=== PATIENT | female | born 1965 | race Caucasian/White ===

== ENCOUNTER → 2016-09-01 | Outpatient (CLI) | payer BC ==
--- NOTE | 2016-09-01 17:00 | MAMMOGRAPHY REPORT ---
BILATERAL DIGITAL SCREENING MAMMOGRAM TOMOSYNTHESIS WITH CAD: 09/01/2016 CLINICAL HISTORY: Routine screening examination. TECHNIQUE: Breast tomosynthesis in addition to standard 2D mammography was performed. Current study was also evaluated with a Computer Aided Detection (CAD) system. COMPARISON: Comparison is made to exams dated: 12/06/2013 mammogram - [facility], 01/18/2008, and 07/21/2006 mammogram - [facility]. BREAST COMPOSITION: There are scattered areas of fibroglandular density in both breasts. FINDINGS: No suspicious mass, architectural distortion or cluster of microcalcifications is seen. IMPRESSION: ACR BI-RADS CATEGORY 1: NEGATIVE There is no mammographic evidence of malignancy. A 1 year screening mammogram is recommended. The p atient will receive written notification of the results. Approximately 10% of breast cancers are not detected with mammography. A negative mammographic repor t should not delay biopsy if a clinically suggestive mass is present. Poornima castellon/nayan:09/01/2016 15:57:58 Engineering Document Control Clerk: Anuja CERVANTES(Malena)(Eli), [facility] letter sent: Normal 1/2 BI-RADS Code: ACR BI-RADS Category 1: Negative
== END | disposition home or self-care (01) ==
LOC: C.MAMM 15:05
PROVIDERS: ATTEND Obstetrics & Gynecology
DX: Z12.31 Encounter for screening mammogram for malignant neoplasm of breast (principal)

== ENCOUNTER → 2017-07-26 | Outpatient (CLI) | payer BC | END | disposition home or self-care (01) | LOC: C.LAB1850 09:04 | PROVIDERS: ATTEND Nurse Practitioner Women's Health | DX: N94.9 Unspecified condition associated with female genital organs and menstrual cycle (principal) ==

== ENCOUNTER 2023-03-12 12:17 | Inpatient (IN) ==
[2023-03-12] MEDS ORDERED: ONDANSETRON INJ 2 MG/ML 2 ML VIAL IV STA (12:23)
[2023-03-12] MEDS ORDERED: SODIUM CHLORIDE 0.9% 500 ML IV STA (12:23)
--- NOTE | 2023-03-12 12:27 | Emergency Department Note ---
Impression & Plan Closed right hip fracture, Fall ED Provider Note NAME: BERYL BAEZ AGE: 57 SEX: F : 1965 ARRIVES VIA: Ambulance INFORMANT: Patient, ED PROVIDER(S): Sebastian Rogers DO CHIEF COMPLAINT: Hip pain HPI: The patient is a 57-year-old female who fell from a standing position while she was walking the sidewalk. She fell directly onto her right side. She injured her right hip. She was unable to ambulate. She states the pain is moderate to severe. She also localizes it to her right thigh. The patient denies having any neck pain. She did not strike her head or lose consciousness. She does not take blood thinners currently. ROS: See above HPI for pertinent positives & negatives. A total of 10 systems reviewed and were otherwise negative. PAST MEDICAL HISTORY: See Below PAST SURGICAL HISTORY: See Below FAMILY HISTORY: See Below SOCIAL HISTORY: See Below HOME MEDICATIONS: See Below ALLERGIES: See Below VITALS: See Below PHYSICAL EXAMINATION: GENERAL: The patient is awake and alert. She is very anxious and appears to be uncomfortable. EYES: The conjunctivae are clear. The pupils are round and reactive. EARS, NOSE, MOUTH AND THROAT: The nose is without any evidence of any deformity. NECK: The neck is nontender and supple. RESPIRATORY: Normal respiratory effort is noted there is no evidence of wheezing rhonchi or rales CARDIOVASCULAR: Regular rate and rhythm noted there no murmurs rubs or gallops normal S1 normal S2. GASTROINTESTINAL: The abdomen is soft. Abdomen is nontender. BACK: No midline tenderness or or step-off noted range of motion in flexion extension as well as rotation no signs of muscle spasm noted MUSCULOSKELETAL/EXTREMITIES: There is pain with palpation over the right lateral hip as well as the right anterior thigh. Range of motion testing elicits severe pain especially with range of motion in internal/external rotation. There is atrophy noted of the right lower extremity. SKIN: There is no obvious evidence of any rash. There are no petechiae, pallor or cyanosis noted. Pulses are symmetric in both feet. NEUROLOGIC: Patient is awake alert and oriented x3. MEDICAL DECISION MAKING: The patient is a 57-year-old female who presented to the emergency department for an evaluation of right hip pain. The patient fell from standing position onto her right side. Her history and physical exam appear to be consistent with possible hip fracture. X-rays were obtained. The patient was treated with IV pain medication in the emergency department. She was reevaluated multiple times. On reevaluation she was feeling somewhat improved. I discussed the patient's laboratory and radiographic studies with her. She was found to have signs of an intertrochanteric right hip fracture on x-rays. I discussed her condition with the on-call [facility] hospitalist. They have agreed to evaluate the patient in the emergency department for further management and disposition. Triage Nursing notes reviewed. Prior medical records reviewed Vital Signs: reviewed and remarkable for elevated blood pressure. Differential diagnosis: Fracture, subluxation, dislocation, contusion, ligamentous injury, neurovascular, compartment syndrome, rhabdomyolysis, as well as other pathologies. ER treatment provided: See below Diagnostics interpreted by me: ECG: EKG was obtained in the emergency department. My interpretation is normal sinus rhythm at 72 bpm. There is no ectopy. There is no acute ST segment a bnormalities noted. This was compared to a tracing from February 19, 2013. No changes were noted. Cardiac Monitoring: An order was placed for continuous cardiac monitoring. The monitor shows a rate of 75 bpm with sinus rhythm. Laboratory studies: As stated above and show below. Imaging studies: See below. Radiographic imaging was reviewed by myself Consultation(s): I discussed this case with Dr. Cho [facility]. Past Med/Surg History Medical History Arthritis Colostomy in place Deep vein thrombosis 2018 DURING CHEMO Hx of migraines Leiomyosarcoma HX OF>TUMOR IN PELVIC AREA>RADIATION/SURGERY/CHEMO Nerve pain PHANTOM LEG PAIN>RT Sleep apnea NO DEVICE Temporomandibular joint disorder Surgical History H/O wisdom tooth extraction History of appendectomy History of bladder surgery BLADDER AND URETER SURGERY History of bowel resection X 2 (WITH ILEOSTOMY/REVERSAL + COLOSTOMY) History of colonoscopy per pt, will need pediatric scope History of hysterectomy History of orthopedic surgery RT HAMSTRING REPAIR History of reversal of ileostomy History of surgery RT SIDE OF PELVIC AREA>TUMOR REMOVED RESULTING IN NERVE DAMAGE Family History Mother Stroke Father Family history of bleeding disorder Other No family history of adverse response to anesthesia No family history of allergies Denies family history of Ovarian cancer Hearing loss Breast cancer Colorectal cancer Hypertension Asthma Social History Smoking Status: Never smoker Second Hand Exposure: Yes (as a child); Do You Dip or Chew Tobacco: No; Hx Alcohol Use: Yes Alcohol type: wine Hx Substance Use: No Preferred Language: Portuguese Communication Ability: Effective Engine Generator Assembler Required: No Beliefs That Will Affect Care: None marital status: Current Living Situation: Alone current occupational status: employed 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 How many Children do You have: 3 Feels Safe at Home: Yes Assistive Devices: Glasses Allergies Allergies Allergy/AdvReac Type Severity Reaction Status Date / Time No Known Drug Allergies Allergy Unknown Verified 10/06/22 09:52 Home Meds Home Medications Medication Instructions Recorded Confirmed duloxetine 30 mg capsule,delayed 30 mg PO HS 06/23/20 03/12/23 release pregabalin 100 mg capsule 100 mg PO TID 03/12/23 03/12/23 Results & Data (ED) Vital Signs Vital Signs - 24 hr 03/12/23 12:23 03/12/23 12:33 03/12/23 13:05 Temperature 37 C Temperature Source Oral Pulse Rate 82 94 H 75 Respiratory Rate 20 20 Respiratory Effort / Characteristics Non-Labored Respiratory Depth Normal Blood Pressure 142/82 H Blood Pressure Mean 102 Pulse Oximetry 99 98 Oxygen Delivery Method Room Air Sepsis Recent Fever Within 48 Hours No Sepsis New/Unexplained Change in Mental Status No Sepsis Action Taken by Nursing No Action Required Home Medications Current Medication List: was personally reviewed by me Laboratory Data Attestation: I reviewed the patient's lab results. 03/12/23 12:35 03/12/23 12:35 Lab Results 03/12/23 03/12/23 03/12/23 Range/Units 12:34 12:35 12:35 WBC 4.96 (4.8-10.8) K/ul RBC 4.85 (4.20-5.40) M/uL Hgb 15.1 (12.0-16.0) g/dl Hct 44.5 (37.0-47.0) % MCV 91.8 (80.0-100.0) fL MCH 31.1 (25.0-34.0) pg MCHC 33.9 (32.0-36.0) g/dL RDW Std Deviation 42.7 (36.4-46.3) fL RDW Coeff of Angelo 12.7 (11.5-14.5) % Plt Count 253 (130-400) K/uL MPV 10.3 (9.4-12.4) fL Immature Gran % (Auto) 0.2 % Neut % (Auto) 58.9 % Lymph % (Auto) 28.8 % Kern % (Auto) 8.9 % Eos % (Auto) 1.4 % Baso % (Auto) 1.8 % Neut # (Auto) 2.92 (1.40-6.50) K/uL Lymph # (Auto) 1.43 (1.2-3.4) K/uL Kern # (Auto) 0.44 (0.11-0.59) K/uL Eos # (Auto) 0.07 (0-0.50) K/uL Baso # (Auto) 0.09 (0-0.2) K/uL Immature Gran # (Auto) 0.01 (0.01-0.20) K/uL PT 11.2 (9.0-12.0) Seconds INR 1.0 (0.9-1.1) APTT 23.2 (21.0-31.0) Seconds PTT Ratio 0.8 Sodium (136-145) mmol/L Potassium (3.5-5.1) mmol/L Chloride (98-107) mmol/L Carbon Dioxide (21-32) mmol/L Anion Gap (3-11) BUN (6-23) mg/dl Creatinine (0.6-1.2) mg/dl Est Cr Clr Drug Dosing ml/min Est GFR ( Amer) ml/min Est GFR (Non-Af Amer) ml/min BUN/Creatinine Ratio (10-20) Glucose (70-99(Fasting)) mg/dl Calcium (8.6-10.3) mg/dl Total Bilirubin (0.2-1.0) mg/dl AST (13-39) U/L ALT (7-52) U/L Alkaline Phosphatase (34-104) U/L Troponin I High Sens (0-14) pg/ml Total Protein (6.0-8.3) gm/dl Albumin (3.4-5.0) gm/dl Globulin (2.5-4.0) gm/dl Albumin/Globulin Ratio (0.9-2) Lipase (11-82) U/L SARS-CoV-2, RNA, NAAT NEGATIVE (NEGATIVE) 03/12/23 Range/Units 12:35 WBC (4.8-10.8) K/ul RBC (4.20-5.40) M/uL Hgb (12.0-16.0) g/dl Hct (37.0-47.0) % MCV (80.0-100.0) fL MCH (25.0-34.0) pg MCHC (32.0-36.0) g/dL RDW Std Deviation (36.4-46.3) fL RDW Coeff of Angelo (11.5-14.5) % Plt Count (130-400) K/uL MPV (9.4-12.4) fL Immature Gran % (Auto) % Neut % (Auto) % Lymph % (Auto) % Kern % (Auto) % Eos % (Auto) % Baso % (Auto) % Neut # (Auto) (1.40-6.50) K/uL Lymph # (Auto) (1.2-3.4) K/uL Kern # (Auto) (0.11-0.59) K/uL Eos # (Auto) (0-0.50) K/uL Baso # (Auto) (0-0.2) K/uL Immature Gran # (Auto) (0.01-0.20) K/uL PT (9.0-12.0) Seconds INR (0.9-1.1) APTT (21.0-31.0) Seconds PTT Ratio Sodium 138 (136-145) mmol/L Potassium 3.8 (3.5-5.1) mmol/L Chloride 102 (98-107) mmol/L Carbon Dioxide 28 (21-32) mmol/L Anion Gap 8 (3-11) BUN 17 (6-23) mg/dl Creatinine 0.89 (0.6-1.2) mg/dl Est Cr Clr Drug Dosing 67.2 ml/min Est GFR ( Amer) 82.8 ml/min Est GFR (Non-Af Amer) 71.4 ml/min BUN/Creatinine Ratio 19.1 (10-20) Glucose 95 (70-99(Fasting)) mg/dl Calcium 10.0 (8.6-10.3) mg/dl Total Bilirubin 0.8 (0.2-1.0) mg/dl AST 19 (13-39) U/L ALT 14 (7-52) U/L Alkaline Phosphatase 53 (34-104) U/L Troponin I High Sens < 2.3 (0-14) pg/ml Total Protein 7.6 (6.0-8.3) gm/dl Albumin 4.8 (3.4-5.0) gm/dl Globulin 2.8 (2.5-4.0) gm/dl Albumin/Globulin Ratio 1.7 (0.9-2) Lipase 28 (11-82) U/L SARS-CoV-2, RNA, NAAT (NEGATIVE) Administered Medications Fentanyl Citrate (Fentanyl Citrate Pf 100 Mcg/2 Ml Vial) 50 mcg IV Q15M PRN PRN Reason: Pain Stop: 03/26/23 12:22 Last Admin: 03/12/23 13:20 Dose: 50 mcg Documented By: Admin: 03/12/23 12:39 Dose: 50 mcg Documented By: GERALD Discontinued Medications Sodium Chloride (Nss) 500 mls @ 999 mls/hr IV .Q31M STA Stop: 03/12/23 12:53 Last Infusion: 03/12/23 13:15 Dose: 0 mls/hr Documented By: Admin: 03/12/23 12:39 Dose: 999 mls/hr Documented By: GERALD Ondansetron HCl (Ondansetron Inj 2 Mg/Ml 2 Ml Vial) 4 mg IV NOW STA Stop: 03/12/23 12:24 Last Admin: 03/12/23 12:39 Dose: 4 mg Documented By: GERALD Imaging Data Attestation: I personally reviewed and interpreted this imaging study as follows: My Impression: X-ray of the right hip and pelvis were obtained in the emergency department. My interpretation is acute right hip fracture, final report below. 1 view chest x-ray was obtained in the emergency department. My interpretation is no definite infiltrate, no free air, final report below. Radiologist's Impression: Chest X-Ray 03/12/23 12:23 XR chest 1V portable CLINICAL HISTORY: Chest pain, nonspecific. Fall. COMPARISON STUDY: No previous studies for comparison. FINDINGS: Lung volumes are normal. Lungs are clear. There is no pneumothorax or pleural effusion. Cardiac size is normal. Mediastinal contours are normal. There is no evidence for pulmonary edema. IMPRESSION: No acute cardiopulmonary findings. ACT 112: Negative or not required by law. Electronically signed by: Carlos Vasquez M.D. 03/12/2023 1:42 PM Hip/Pelvis X-Ray 03/12/23 12:23 XR hip RT 2V w pelvis CLINICAL HISTORY: fall COMPARISON: Pelvis radiograph May 23, 2013. CT of the abdomen and pelvis March 08, 2018. FINDINGS: There is an acute mildly displaced intertrochanteric fracture of the right femur. No additional acute fractures are identified. There are surgical clips and bowel anastomoses within the pelvis. IMPRESSION: Acute mildly displaced intertrochanteric fracture of the right femur. ACT 112: Negative or not required by law. Electronically signed by: Carlos Vasquez M.D. 03/12/2023 1:41 PM Discharge Plan Visit Data Chief Complaint: Hip Pain Stated Complaint: FALL, R LEG PAIN ED Provider: Sebastian Rogers Discharge Problem: Closed right hip fracture, Fall Patient Disposition: Being Evaluated by Hospitalist Forms Stand Alone Forms: My [employer] Prescriptions Prescriptions: No Action duloxetine 30 mg capsule,delayed release(DR/EC) 30 mg PO HS pregabalin 100 mg capsule 100 mg PO TID Referrals Referrals: Princess Conway [Primary Care Provider] -
[2023-03-12] MEDS: fentaNYL citrate PF 100 MCG/2 ML VIAL IV PRN ×2 (12:39→13:20)
[2023-03-12 13:06] LABS: Basophils % (auto) 1.8 %; Eosinophils % (auto) 1.4 %; Hematocrit (blood only) 44.5 % (37.0-47.0); Hemoglobin 15.1 g/dl (12.0-16.0); Immature Granulocytes % (auto) 0.2 %; Lymphocytes # (auto) 1.43 K/uL (1.2-3.4); Lymphocytes % (auto) 28.8 %; Mean Corpuscular Hemoglobin 31.1 pg (25.0-34.0); Mean Corpuscular Hgb Conc 33.9 g/dL (32.0-36.0); Mean Corpuscular Volume 91.8 fL (80.0-100.0); Mean Platelet Volume 10.3 fL (9.4-12.4); Monocytes # (auto) 0.44 K/uL (0.11-0.59); Monocytes % (auto) 8.9 %; Neutrophils # (auto) 2.92 K/uL (1.40-6.50); Neutrophils % (auto) 58.9 %; Platelet Count 253 K/uL (130-400); RDW Coefficient of Variation 12.7 % (11.5-14.5); RDW Standard Deviation 42.7 fL (36.4-46.3); Red Blood Count 4.85 M/uL (4.20-5.40); White Blood Count 4.96 K/ul (4.8-10.8)
[2023-03-12 13:07] LABS: Basophils # (auto) 0.09 K/uL (0-0.2); Eosinophils # (auto) 0.07 K/uL (0-0.50); Immature Granulocytes # (auto) 0.01 K/uL (0.01-0.20)
[2023-03-12 13:16] LABS: Alanine Aminotransferase 14 U/L (7-52); Albumin Globulin Ratio 1.7 (0.9-2); Albumin Level 4.8 gm/dl (3.4-5.0); Alkaline Phosphatase 53 U/L (34-104); Anion Gap 8 (3-11); Aspartate Aminotransferase 19 U/L (13-39); BUN Creatinine Ratio 19.1 (10-20); Bilirubin,Total 0.8 mg/dl (0.2-1.0); Blood Urea Nitrogen 17 mg/dl (6-23); Carbon Dioxide 28 mmol/L (21-32); Chloride 102 mmol/L (98-107); Creatinine Clr Calc Pharmacy 67.2 ml/min; Est GFR (African American) 82.8 ml/min; Est GFR (Non-African American) 71.4 ml/min; Globulin 2.8 gm/dl (2.5-4.0); Glucose 95 mg/dl (70-99(Fasting)); Lipase 28 U/L (11-82); Potassium 3.8 mmol/L (3.5-5.1); Sodium 138 mmol/L (136-145); Total Protein 7.6 gm/dl (6.0-8.3)
[2023-03-12 13:22] LABS: Troponin I High Sensitivity < 2.3 pg/ml (0-14)
[2023-03-12 13:36] LABS: Partial Thromboplastin Ratio 0.8; Partial Thromboplastin Time 23.2 Seconds (21.0-31.0); Prothrombin Time 11.2 Seconds (9.0-12.0)
--- NOTE | 2023-03-12 13:43 | XRay Report ---
XR hip RT 2V w pelvis CLINICAL HISTORY: fall COMPARISON: Pelvis radiograph May 23, 2013. CT of the abdomen and pelvis March 08, 2018. FINDINGS: There is an acute mildly displaced intertrochanteric fracture of the right femur. No addit ional acute fractures are identified. There are surgical clips and bowel anastomoses within the pelvi s. IMPRESSION: Acute mildly displaced intertrochanteric fracture of the right femur. ACT 112: Negative or not required by law. Electronically signed by: Carlos Vasquez M.D. 03/12/2023 1:41 PM
--- NOTE | 2023-03-12 13:44 | History & Physical Report ---
Date of Service March 12, 2023 Assessment & Plan (1) Closed right hip fracture: Plan: 57-year-old female with a past medical history of leiomyosarcoma with operative removal in [address] [facility] complicated by nerve injury with nearly absent strength in the right lower extremity and chronic foot drop requiring a brace, right hamstring rupture with reattachment [address] Dukes, ostomy placement 2/2 bowel resection during her leiomyosarcoma removal, and no history of diabetes/hypertension/GA/ACS who presented after she "got tangled up "and tripped falling to her right side and has sustained a right mildly displaced femur fracture. Mechanical fall, no syncope/presyncope, right hip fracture - XR: Acute mildly displaced intertrochanteric fracture of the right femur. - Last had latte x2 ~11am. No solid food this morning. No leukocytosis Sodium normal, potassium normal, creatinine normal at baseline and admitting creatinine 0.89 High-sensitivity troponin undetectable COVID-negative Admitting EKG: Normal sinus rhythm, nonspecific T wave abnormality without territorial ST segment changes or T wave inversions. QTc 416 RCRI 0 points, class I risk, no modifiable risk factors at this time Orthopedics consulted - Goldstein placed - Zofran, APAP, breakthrough hydromorphone ordered Right phantom pain After nerve injury during operative removal of her leiomyosarcoma in 2018 - Continue duloxetine 30mg History of leiomyosarcoma with revision [address] [facility] With residual loop colostomy functioning normally, pending reversal at next follow-up. 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 No recurrence No acute change in management DVT prophylaxis: Pending surgical evaluation for right hip repair, postop DVT prophylaxis either Lovenox or per surgical team Diet: N.p.o. pending surgical evaluation Disposition: Medical/surgical CODE STATUS: Full code (2) Leiomyosarcoma: (3) Sleep apnea: (4) Nerve pain: History of Present Illness Primary Care Provider: Princess Conway Abigail is a 57-year-old female with a past medical history of mild WILLI, leiomyosarcoma [address] [facility] with last imaging 08/2022 stable, ostomy who fell on her right side after she lost her balance walking on the sidewalk. She did not hit her head or lose consciousness. She is not on blood thinners. Abigail reports she has a drop foot with some mobility issues on her R foot. [place] 'and get tangled up and just fell sideways' and fell 'smack on the R leg/hip which took the whole blow and instantly had excruciating pain.' No head injury, no LoC. No chest pain, chest pressure, presyncope, syncope, dizziness that lead to her fall. Endorses a history of leimyosarcoma s/p multiple surgeries with major surgery in 2018. While removing the mass nerve to her R leg was partially cut/damaged so below the R knee has no strength and is weak in the R proximal thigh muscles at baseline. No sensation in most of the R foot (does have some phantom pain on lyrica/symbalta) and gets some phantom paresthesias in R calf. Also has an ostomy placement following her tumor resection in 2019. Tumor was close enough to the colon that they needed a partial colon resection to get good margins. Loop colostomy, can have it reversed at some point but hadn't done this yet. Was scheduled to go to [place] for re-evaluation of this. no issues with the ostomy. Normal output. Rare rectal pouch output 'rare peanut'. Last latte 11pm. No solid food today. R Hamstring reattached by Dr. Slaughter January 2013, with R pelvic reattachement. Medical History: Reviewed Medications: Reviewed Surgical History: Reviewed Family history: Reviewed. Mother heavy tobacco and ETOH some 'heart issues' in 60s. Stroke, earliest was ~60s. Passed in 70s, had multiple strokes. Allergies: Reviewed Social History: NO tobacco product use, some childhood secondary smoke exposure. EtoH social use, although notes had been ~3-4 times per week 1-2 per sitting. Code Status: Full Code Allergies Allergy/AdvReac Type Severity Reaction Status Date / Time No Known Drug Allergies Allergy Unknown Verified 10/06/22 09:52 Home Medications Medication Instructions Recorded Confirmed Type duloxetine 30 mg capsule,delayed 30 mg PO HS 06/23/20 03/12/23 History release pregabalin 100 mg capsule 100 mg PO TID 03/12/23 03/12/23 History Past Med/Surg History Medical History Arthritis Colostomy in place Deep vein thrombosis 2018 DURING CHEMO Hx of migraines Leiomyosarcoma HX OF>TUMOR IN PELVIC AREA>RADIATION/SURGERY/CHEMO Nerve pain PHANTOM LEG PAIN>RT Sleep apnea NO DEVICE Temporomandibular joint disorder Surgical History H/O wisdom tooth extraction History of appendectomy History of bladder surgery BLADDER AND URETER SURGERY History of bowel resection X 2 (WITH ILEOSTOMY/REVERSAL + COLOSTOMY) History of colonoscopy per pt, will need pediatric scope History of hysterectomy History of orthopedic surgery RT HAMSTRING REPAIR History of reversal of ileostomy History of surgery RT SIDE OF PELVIC AREA>TUMOR REMOVED RESULTING IN NERVE DAMAGE Family History Mother Stroke Father Family history of bleeding disorder Other No family history of adverse response to anesthesia No family history of allergies Denies family history of Ovarian cancer Hearing loss Breast cancer Colorectal cancer Hypertension Asthma Social History Smoking Status: Never smoker Second Hand Exposure: Yes (as a child); Do You Dip or Chew Tobacco: No; Hx Alcohol Use: Yes Alcohol type: wine Hx Substance Use: No Preferred Language: Ethiopian Communication Ability: Effective Supervisor Pigment Making Required: No Beliefs That Will Affect Care: None marital status: Current Living Situation: Alone current occupational status: employed 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 NAD. Cooperative. HEENT: Atraumatic, normocephalic. Vision/hearing intact Pulm: CTAB A&P. -wheezes, -rales, -rhonchi. Symmetrical chest rise. No increased work of breathing. No respiratory distress. Cardiac: RRR, -mrg. Radial pulses intact and symmetrical. Abdominal: +ostomy. Nontender, nondistended, soft. BS present. Ext: R hip shortened and externally rotated. Sensation to soft touch is diminished but intact in right calf and ankle, minimally present at right dorsal foot, and absent in the plantar foot other than the arch. Right lower extremity is atrophic. Cap refill approximately 2 seconds. Left lower extremity is with normal strength and sensation to soft touch, cap refill less than 2 seconds Results & Data Results & Data Vital Signs (Past 12 Hours) Vital Signs Temp Pulse Resp BP Pulse Ox O2 Del Method 03/12/23 13:05 75 03/12/23 12:33 94 H 20 98 Room Air 03/12/23 12:23 37 C 82 20 142/82 H 99 PG Care Time/CCT Total # of Minutes Spent Total Time Spent with Patient: Total time spent is greater than 50% in coordination of care (as documented) at patient's floor/unit and/or counseling patient: Coding Level of Care Code 71016 INT INP/OBS CARE MIN Diagnoses Closed right hip fracture S72.001A Encounter type: initial encounter Leiomyosarcoma C49.9 Sleep apnea G47.30 Nerve pain M79.2 (1) Closed right hip fracture Encounter type: initial encounter Qualified Code(s): S72.001A - Fracture of unspecified part of neck of right femur, initial encounter for closed fracture
--- NOTE | 2023-03-12 13:44 | XRay Report ---
XR chest 1V portable CLINICAL HISTORY: Chest pain, nonspecific. Fall. COMPARISON STUDY: No previous studies for comparison. FINDINGS: Lung volumes are normal. Lungs are clear. There is no pneumothorax or pleural effusion. Car diac size is normal. Mediastinal contours are normal. There is no evidence for pulmonary edema. IMPRESSION: No acute cardiopulmonary findings. ACT 112: Negative or not required by law. Electronically signed by: Carlos Vasquez M.D. 03/12/2023 1:42 PM
[2023-03-12] MEDS ORDERED: ACETAMINOPHEN 325 MG TAB PO PRN (15:05)
[2023-03-12] MEDS ORDERED: MAGNESIUM HYDROXIDE SUSP 30 ML UDC PO PRN (15:52)
[2023-03-12] MEDS ORDERED: HYDROmorphone HCL 2 MG TAB PO PRN ×3 (15:52→21:02)
[2023-03-12] MEDS ORDERED: NALOXONE HCL 0.4 MG/1 ML VIAL/CARP IV PRN (15:52)
[2023-03-12] MEDS ORDERED: ONDANSETRON INJ 2 MG/ML 2 ML VIAL IV PRN (15:52)
[2023-03-12] MEDS ORDERED: bisacodyL 10 MG SUPP PR PRN (15:52)
--- NOTE | 2023-03-12 18:09 | Orthopedic Consultation ---
Date of Service March 12, 2023 Assessment & Plan (1) Closed right hip fracture: Patient has a intertrochanteric hip fracture with a history of leiomyosarcoma excision" chronic sciatic nerve palsy resolved. This assessment is going require surgical management. We discussed treatment options. We will go and proceed with IM nailing of the right intertrochanteric/subtrochanteric hip fracture tomorrow. The risk meant this procedure explained the patient could be not limited to DVT PE infection neurological and vascular bleeding palm pain limb range of motion this is fairly of her symptoms incomplete relief of symptoms need for further surgery in future nonunion etc. The patient understands and desires to proceed informed consent was obtained. We will keep her n.p.o. after midnight. Plan on DVT prophylaxis glucide teds SCDs and a baby aspirin twice a day postoperatively. (2) Sciatic nerve palsy, right: History of Present Illness Reason for Consultation: . Right femur fracture Requesting Physician: . Attending Physician: Russ Lubin MD . Patient is a 57-year-old female with a history of a leiomyosarcoma resection of back in 2018 done at [facility]. She has a chronic nerve palsy of her right leg. As she was walking this morning and got tangled and fell in an acute onset of the right hip and leg pain. She brought to emergency room where x-rays were right intertrochanteric/subtrochanteric femur fracture. She been admitted by the medical service and we have been consulted. Denies any pre-existing hip or leg pain. She does have chronic nerve palsy with foot drop on the side and no motor function below the knee. No other injuries. No head injury no loss conscious no neck pain. The patient has a history of this leiomyosarcoma resected at [facility]. As she had 1 episode of recurrence but nothing since 2018. She does have a colostomy as a result. This the tumor was in her pelvis. She does have resulting sciatic nerve palsy Allergies Allergy/AdvReac Type Severity Reaction Status Date / Time No Known Drug Allergies Allergy Unknown Verified 10/06/22 09:52 Home Medications Medication Instructions Recorded Confirmed Type duloxetine 30 mg capsule,delayed 30 mg PO HS 06/23/20 03/12/23 History release pregabalin 100 mg capsule 100 mg PO TID 03/12/23 03/12/23 History Past Med/Surg History Medical History (Updated 03/12/23 @ 18:08 by Evin Mtz MD) Arthritis Colostomy in place Deep vein thrombosis 2018 DURING CHEMO Hx of migraines Leiomyosarcoma HX OF>TUMOR IN PELVIC AREA>RADIATION/SURGERY/CHEMO Nerve pain PHANTOM LEG PAIN>RT Sciatic nerve palsy, right Sleep apnea NO DEVICE Temporomandibular joint disorder Surgical History H/O wisdom tooth extraction History of appendectomy History of bladder surgery BLADDER AND URETER SURGERY History of bowel resection X 2 (WITH ILEOSTOMY/REVERSAL + COLOSTOMY) History of colonoscopy per pt, will need pediatric scope History of hysterectomy History of orthopedic surgery RT HAMSTRING REPAIR History of reversal of ileostomy History of surgery RT SIDE OF PELVIC AREA>TUMOR REMOVED RESULTING IN NERVE DAMAGE Family History Mother Stroke Father Family history of bleeding disorder Other No family history of adverse response to anesthesia No family history of allergies Denies family history of Ovarian cancer Hearing loss Breast cancer Colorectal cancer Hypertension Asthma Social History Smoking Status: Never smoker Second Hand Exposure: No; Do You Dip or Chew Tobacco: No; Tobacco Cessation Education Requested by Patient: No Hx Alcohol Use: Yes Alcohol type: wine Hx Substance Use: No Preferred Language: Polish Communication Ability: Effective Supervisor Pipeline Required: No Beliefs That Will Affect Care: None marital status: Current Living Situation: Alone current occupational status: employed 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 Physical Exam . Physical examination was a pleasant middle-age female. She is she is lying in bed and looks completely comfortable. Examination of the right leg reveals it to be slightly externally rotated. She has very mild thigh swelling. No knee effusion. She is got no motor function below the knee. She cannot dorsiflex or plantarflex her foot appropriately. She does have numbness in her foot as well. She does seem to have some quad function but is difficult to assess that with the femur fracture. She got brisk refill. Results & Data Results & Data Laboratory Results . Diagnostic Findings . X-rays of the right femur reveal a minimally displaced intertrochanteric hip fracture with subtrochanteric extension. PG Care Time/CCT Total # of Minutes Spent Total Time Spent with Patient: Total time spent is greater than 50% in coordination of care (as documented) at patient's floor/unit and/or counseling patient: Coding Level of Care Code 22597 IN/OBS CONSULT LVL 5,80M Diagnoses Closed right hip fracture S72.001A Encounter type: initial encounter Sciatic nerve palsy, right G57.01 (1) Closed right hip fracture Encounter type: initial encounter Qualified Code(s): S72.001A - Fracture of unspecified part of neck of right femur, initial encounter for closed fracture
[2023-03-12] MEDS: PREGABALIN 100 MG CAP PO SCH (21:13)
[2023-03-12] MEDS: DOCUSATE SODIUM/SENNA 50/8.6MG TAB PO SCH (21:13)
[2023-03-12] MEDS: DULoxetine HCL 30 MG CAP PO SCH (21:13)
[2023-03-12] MEDS ORDERED: MoRPHine SULFATE 2 MG/ML CARP IV STA (22:59)
[2023-03-13] MEDS ORDERED: MoRPHine SULFATE 2 MG/ML CARP IV PRN (06:16)
[2023-03-13] MEDS: MoRPHine SULFATE 2 MG/ML CARP IV PRN ×2 (06:33→16:42)
--- NOTE | 2023-03-13 06:55 | Anesthesiology Consultation ---
Date of Service March 13, 2023 Assessment & Plan Chart Review Chart Review: data entry supervisor initiated History Surgery Operation Date: 03/13/23 10:00 Proposed Procedures p Intramedullary Bruce Femur - Evin Mtz MD Height/Weight Height: 5 ft 4 in Weight: 65.4 kg Allergies Allergy/AdvReac Type Severity Reaction Status Date / Time No Known Drug Allergies Allergy Unknown Verified 10/06/22 09:52 Medications Home Medications Medication Instructions Recorded Confirmed Last Taken duloxetine 30 mg capsule,delayed 30 mg PO HS 06/23/20 03/12/23 03/11/23 release pregabalin 100 mg capsule 100 mg PO TID 03/12/23 03/12/23 03/12/23 Active Medications Generic Name Dose Route Start Last Admin Trade Name Freq PRN Reason Stop Dose Admin Acetaminophen 650 mg 03/12/23 15:05 03/12/23 16:45 Acetaminophen 325 Mg Tab PO 04/11/23 15:14 650 mg Q6H PRN Administration pain first line Duloxetine HCl 30 mg 03/12/23 21:00 03/12/23 21:13 Duloxetine Hcl 30 Mg Cap PO 04/11/23 20:59 30 mg HS BRYCE Administration Morphine Sulfate 2 mg 03/13/23 06:16 03/13/23 06:33 Morphine Sulfate 2 Mg/Ml Carp IV 03/27/23 06:15 2 mg Q4H PRN Administration Severe Pain (Scale 7, 8, 9,10) Pregabalin 100 mg 03/12/23 21:00 03/12/23 21:13 Pregabalin 100 Mg Cap PO 04/11/23 20:59 100 mg TID BRYCE Administration Senna/Docusate Sodium 2 tab 03/12/23 21:00 03/12/23 21:13 Docusate Sodium/Senna 50/8.6mg Tab PO 04/11/23 20:59 2 tab HS BRYCE Administration NPO Date Last Intake of Fluids: 03/12/23 Time Last Intake of Fluids: 23:59 Date Last Intake of Solids: 03/12/23 Time Last Intake of Solids: 23:59 Past Medical History Medical History Arthritis Colostomy in place Deep vein thrombosis 2018 DURING CHEMO Hx of migraines Leiomyosarcoma HX OF>TUMOR IN PELVIC AREA>RADIATION/SURGERY/CHEMO Nerve pain PHANTOM LEG PAIN>RT Sciatic nerve palsy, right Sleep apnea NO DEVICE Temporomandibular joint disorder Past Family History Family History Mother Stroke Father Family history of bleeding disorder Other No family history of adverse response to anesthesia No family history of allergies Denies family history of Ovarian cancer Hearing loss Breast cancer Colorectal cancer Hypertension Asthma Past Surgical History Surgical History H/O wisdom tooth extraction History of appendectomy History of bladder surgery BLADDER AND URETER SURGERY History of bowel resection X 2 (WITH ILEOSTOMY/REVERSAL + COLOSTOMY) History of colonoscopy per pt, will need pediatric scope History of hysterectomy History of orthopedic surgery RT HAMSTRING REPAIR History of reversal of ileostomy History of surgery RT SIDE OF PELVIC AREA>TUMOR REMOVED RESULTING IN NERVE DAMAGE Social History Smoking Status: Never smoker Do You Dip or Chew Tobacco: No Hx Alcohol Use: Yes Alcohol type: wine alcohol intake frequency: a few times a week Hx Substance Use: No substance use type: does not use Physical Exam Vital Signs Last Vital Signs Temp 98.4 F 03/12/23 20:24 Pulse 81 03/12/23 20:24 Resp 16 03/12/23 20:24 BP 121/76 03/12/23 20:24 Pulse Ox 98 03/12/23 20:24 O2 Del Method Room Air 03/12/23 20:24 Testing Laboratory Results PT 11.2 Seconds (9.0-12.0) 03/12/23 12:35 INR 1.0 (0.9-1.1) 03/12/23 12:35 APTT 23.2 Seconds (21.0-31.0) 03/12/23 12:35 Blood Type O Positive 03/12/23 15:24 Antibody Screen NEGATIVE 03/12/23 15:24 Electrocardiogram Date: 03/12/23 Normal sinus rhythm, rate 72 bpm Normal ECG When compared with ECG of 19-FEB-2013 10:41, Nonspecific T wave abnormality now evident in Anterior leads Chest X-Ray Date: 03/12/23 Findings: + NAD
[2023-03-13 07:00] LABS: Basophils # (auto) 0.08 K/uL (0-0.2); Basophils % (auto) 1.1 %; Eosinophils # (auto) 0.07 K/uL (0-0.50); Hematocrit (blood only) 39.8 % (37.0-47.0); Hemoglobin 13.3 g/dl (12.0-16.0); Immature Granulocytes # (auto) 0.02 K/uL (0.01-0.20); Immature Granulocytes % (auto) 0.3 %; Lymphocytes # (auto) 1.21 K/uL (1.2-3.4); Mean Corpuscular Hemoglobin 30.9 pg (25.0-34.0); Mean Corpuscular Hgb Conc 33.4 g/dL (32.0-36.0); Mean Corpuscular Volume 92.3 fL (80.0-100.0); Mean Platelet Volume 10.4 fL (9.4-12.4); Monocytes # (auto) 0.66 K/uL (0.11-0.59); Monocytes % (auto) 9.3 %; Neutrophils # (auto) 5.06 K/uL (1.40-6.50); Neutrophils % (auto) 71.3 %; Platelet Count 210 K/uL (130-400); RDW Coefficient of Variation 12.8 % (11.5-14.5); RDW Standard Deviation 43.8 fL (36.4-46.3); Red Blood Count 4.31 M/uL (4.20-5.40)
[2023-03-13 07:21] LABS: BUN Creatinine Ratio 17.5 (10-20); Calcium 9.1 mg/dl (8.6-10.3); Creatinine Clr Calc Pharmacy 66.2 ml/min; Est GFR (African American) 94.2 ml/min; Est GFR (Non-African American) 81.3 ml/min; Potassium 3.9 mmol/L (3.5-5.1)
--- NOTE | 2023-03-13 07:28 | Hospitalist Progress Note ---
Date of Service March 13, 2023 Assessment & Plan (1) Closed right hip fracture: (2) Nerve pain: (3) Colostomy in place: Plan 57-year-old female with hx of Leiomyoma here due to mechanical fall resulting of R closed hip fracture Closed right hip fracture - Mechanical fall, no syncope/ presyncope - X ray: Acute mildly right intertrochanteric fracture of the right fumer No leukocytosis, stable hgb 3.3 g/dl Orthopedics consulted - Surgery being done today - Pain management with APA and Morphine - Should get outpatient bone density scan. - Will check vitamin D level with am labs - pending History of leiomyosarcoma -No recurrence - revision 2018 at [facility] With residual loop colostomy functioning normally, pending reversal at next follow-up. 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 2018 - Continue duloxetine 30mg Colostomy in place -Functionally normally -Pending reversal at next follow -up Disp: Med/Surg DVT Prophylaxis: aspirin 81mg twice daily Diet: Regular Full code - Admission and Anticipated Discharge Date Admission Date: March 12, 2023 Supervising Physician Co-Signing Physician Notes Resident Physician Supervision Note: I independently interviewed and examined the patient and verified the mayes history and physical, reviewed labs and image studies and agree with resident findings and care plan. Raghav Hayes is a 57 y/o female with past medical history of mild WILLI, Leiomyosarcoma removal on 2018, ostomy in place who fell on her right side after she "twist her feet" and lost her balance. Patient denied syncope/ presyncope, hitting her head or loss consciousness, chest pain, chest pressure, presyncope, syncope, dizziness that lead to her fall. Patient found to have a closed hip fracture. History of leiomyosarcoma with operative removal in 2018 with [facility] complicated by nerve injury with nearly absent strength in the right lower extremity and chronic foot drop requiring a brace, right hamstring rupture with reattachment [address] Dukes, ostomy placement 2/2 bowel resection during her leiomyosarcoma removal. Review of Systems Review of Systems: All systems reviewed & are unremarkable except as noted in Subjective Physical Exam Physical Exam: General: A&Ox3. NAD. Cooperative. HEENT: Atraumatic, normocephalic. Vision/hearing intact Pulm: CTAB A&P. -wheezes, -rales, -rhonchi. Symmetrical chest rise. No increased work of breathing. No respiratory distress. Cardiac: RRR, -mrg. Radial pulses intact and symmetrical. Abdominal: +ostomy. Nontender, nondistended, soft. BS present. Ext: R hip shortened and externally rotated. Sensation to soft touch is diminished but intact in right calf and ankle, minimally present at right dorsal foot, and absent in the plantar foot other than the arch. Right lower extremity is atrophic. Cap refill approximately 2 seconds. Left lower extremity is with normal strength and sensation to soft touch, cap refill less than 2 seconds Results & Data Results & Data Vital Signs (Past 12 Hours) Vital Signs Temp Pulse Resp BP BP Pulse Ox O2 Del Method 03/13/23 07:00 36.8 C 78 16 112/68 95 Room Air 03/12/23 20:24 36.9 C 81 16 121/76 98 Room Air Resident Activity Tracking Resident Involvement: Resident Care Provided Care Provided: Adult Hospital Medicine (1) Closed right hip fracture Encounter type: initial encounter Qualified Code(s): S72.001A - Fracture of unspecified part of neck of right femur, initial encounter for closed fracture
--- NOTE | 2023-03-13 07:51 | History & Physical Bridge Note ---
Date of Service March 13, 2023 History & Physical Bridge Note I have examined the patient, reviewed the History & Physical and in the interval since the performance of the History & Physical I have noted the following changes of clinical significance: no changes noted
--- NOTE | 2023-03-13 08:00 | Electrocardiogram Report ---
Test Reason : Blood Pressure : / mmHG Vent. Rate : 072 BPM Atrial Rate : 072 BPM P-R Int : 172 ms QRS Dur : 074 ms QT Int : 380 ms P-R-T Axes : 066 039 037 degrees QTc Int : 416 ms Normal sinus rhythm Incomplete right bundle branch block Normal ECG When compared with ECG of 19-FEB-2013 10:41, No significant change Confirmed by rAnulfo Kaye ([id number]) on 03/13/2023 8:00:05 AM Referred By: REFERRED SELF Confirmed By:Arnulfo Kaye
[2023-03-13] MEDS: PREGABALIN 100 MG CAP PO SCH ×3 (08:13→20:34)
[2023-03-13] MEDS ORDERED: BUPIVACAINE 0.5 % 5 MG/1 ML PF 10ML VIAL ONE (11:40)
[2023-03-13] MEDS ORDERED: ATROPINE SULFATE 0.1 MG/ML 10ML SYR IV PRN (12:13)
[2023-03-13] MEDS ORDERED: ePHEDrine sulfate 50 MG/ML AMP IV PRN (12:13)
[2023-03-13] MEDS ORDERED: ONDANSETRON INJ 2 MG/ML 2 ML VIAL IV PRN (12:13)
[2023-03-13] MEDS ORDERED: fentaNYL citrate PF 100 MCG/2 ML VIAL IV PRN (12:13)
[2023-03-13] MEDS ORDERED: fentaNYL citrate PF 100 MCG/2 ML VIAL ONE (12:29)
[2023-03-13] MEDS ORDERED: MIDAZOLAM HCL 1 MG/ML 2ML VIAL ONE (12:29)
[2023-03-13] MEDS ORDERED: BUPIVACAINE/EPINEPHRINE 0.5% MPF 1:200,000 30 ML VIAL ONE (12:42)
[2023-03-13] MEDS ORDERED: ceFAZolin 2000MG 2,000 MG/15 ML SYR IV ONE (13:46)
[2023-03-13] MEDS ORDERED: LIDOCAINE 2% 2 ML VIAL/AMP(20MG/ML) INFIL ONE (13:51)
[2023-03-13] MEDS ORDERED: ceFAZolin 330 MG/ML 1 GM VIAL ONE (13:51)
[2023-03-13] MEDS ORDERED: PHENYLEPHRINE 100MCG/ML 5ML SYR ONE (13:51)
[2023-03-13] MEDS ORDERED: PROPOFOL IV EMULSION 10 MG/ML 20 ML VIAL IV ONE (13:51)
--- NOTE | 2023-03-13 14:06 | Fluoroscopy Report ---
FL femur RT 2V CLINICAL HISTORY: RT LONG TROCH NAIL COMPARISON STUDY: Pelvis and right hip radiographs March 12, 2023. FLUOROSCOPY TIME: 1 minute and 27 seconds. Ka, r: 13.65 mGy FLUOROSCOPIC IMAGES: 4 FINDINGS: Fluoroscopy was provided during open reduction and internal fixation of the intertrochanter ic fracture of the right femur with trochanteric nail. Distal screw is noted. Fracture alignment appe ars near anatomic. There are no unexpected radiopaque foreign bodies. IMPRESSION: Fluoroscopy provided during open reduction and internal fixation of the intertrochanteri c fracture of the right femur. ACT 112: Negative or not required by law. Electronically signed by: Carlos Vasquez M.D. 03/13/2023 2:05 PM
--- NOTE | 2023-03-13 14:21 | Operative Report ---
PG Post Operative Report Pre & Post Diagnosis Operation Date: 03/13/23 10:00 Pre-Op Diagnosis: Right intertrochanteric hip fracture with subtrochanteric extension Post-Op Diagnosis: Right intertrochanteric hip fracture with subtrochanteric extension I identified the patient and participated in the time-out.: Yes Procedure Operation Date: 03/13/23 10:00 Actual Procedures p Intramedullary Bruce Femur(Right) - Evin Mtz MD Surgeon Evin Mtz MD Process Safety Engineer Jose Martin Isbell PA-C Estimated Blood Loss 100 Findings Consistent with Post-Op Diagnosis Specimens None Anesthesia Type Spinal MAC Complications none Disposition Accompanied Patient To Recovery: No Indications Patient is a 57-year-old female who had a history of a leiomyosarcoma resected several years ago with a resulting sciatic nerve palsy. She got tangled up in something yesterday while she was walking and fell directly on her right hip. She was unable to ambulate afterwards. She was brought to emergency room where x-rays were right intertrochanteric hip fracture with subtrochanteric extension. She has been admitted by the medicine service, medically optimized and indicated for surgical repair. She denies any history of hip or thigh pain prior to this. There is no signs of underlying bone pathology. Description of Procedure Operative implants consist of: 1. Synthes right 340 mm x 10 mm long trochanteric nail. 2. 85 mm helical blade. 3. 5 mm x 38 mm distal interlocking screw. The patient was taken to the operating room, identified, and placed on the operating table supine position protectors were properly padded. IV antibiotics tried by anesthesia team. A spinal anesthetic was implemented. The patient was then placed on the fracture table. The right leg was placed in boot traction the left leg was placed in a well-leg rowell. I applied some longitudinal traction to her femur and internally rotated foot so the kneecap pointed to the ceiling. X-rays brought in and the fracture lined up nicely. The right hip was then scrubbed with Hibiclens, prepped with ChloraPrep and draped in usual sterile fashion. A curvilinear incision was made just proximal to the tip of the trochanter. Sharp dissection was carried through subcutaneous tissue down below the gluteal fascia. The gluteal fascia was incised longitudinally in line with skin incision. A guidewire was then placed in the lateral tip of the trochanter in both the AP and lateral planes. It was advanced down the femoral canal. This is verified fluoroscopically. I then overreamed this with a 17 mm reamer. The guidewire was exchanged for a ball-tipped guidewire and the nail length was estimated. A 340 mm nail was selected. I then overreamed the guidewire beginning with this 9 and progressing up to . We got pretty good chatter at so we elected to place a 10 mm nail. A 340 mm x 10 mm right long trochanteric nail was then advanced over the guidewire. The guidewire was removed. The lateral aiming arm was attached. A stab incision was made in the lateral aiming arm was advanced to the lateral aspect the femur. Guidewire was placed in the central aspect of the femoral head neck in both the AP and lateral planes. This was measured and an 85 mm helical blade was selected. The cortical strut drill followed by the triple reamers were then placed. An 85 mm helical blade was placed. The proximal setscrew was tightened. I did compress the fracture slightly. Attention drawn toward distal fixation. Using the perfect coquille technique a stab incision was made. A distal interlocking screw was placed. We placed this in the dynamic hole to allow for a little bit of shortening if needed. Some final x-rays were obtained. All wounds were then irrigated. The gluteal fascia was then closed in 1 Vicryl suture in a running fashion. I did inject locally with 30 cc of half percent Marcaine with epinephrine. The subcutaneous tissues of all wounds were closed with 2 Dexon suture in buried interrupted fashion skin was then closed with skin hossein. Leg was then cleaned and dried and sterile dressing was Xeroform, 4 x 4's, ABD pad, foam tape was applied. The patient was then taken off the fracture table and transferred to the recovery room in stable condition. The patient tolerated the procedure well and there were no complications. Jose Martin Isbell, my physician physiotherapist's assistant, was present for the entire procedure. His assistance was required for proper patient positioning, prepping and draping, surgical exposure, retraction, perform the technical details of the operation, placement of the hardware, closure of the incision sites and placement of the sterile bandage. I attest to the content of the Intraoperative Record and any orders documented therein. Any exceptions are noted below.
--- NOTE | 2023-03-13 14:46 | Anesthesiology Progress Note ---
Date of Service March 13, 2023 Anesthesia Post Procedure Vital Signs Vital Signs: Temp Pulse Pulse Resp BP BP Pulse Ox 03/13/23 14:35 76 14 104/58 L 100 03/13/23 14:25 85 16 112/56 L 100 03/13/23 14:15 73 16 101/62 100 03/13/23 14:09 97.0 F L 89 14 100/58 L 100 03/13/23 11:51 98.1 F 82 16 111/69 96 03/13/23 07:00 98.2 F 78 16 112/68 95 03/12/23 20:24 98.4 F 81 16 121/76 98 03/12/23 15:45 97.7 F 74 18 135/75 96 03/12/23 15:13 03/12/23 15:04 74 19 123/71 98 O2 Del Method O2 Flow Rate 03/13/23 14:35 Oxymask 2 03/13/23 14:25 Oxymask 2 03/13/23 14:15 Oxymask 4 03/13/23 14:09 Oxymask 6 03/13/23 11:51 Room Air 03/13/23 07:00 Room Air 03/12/23 20:24 Room Air 03/12/23 15:45 Room Air 03/12/23 15:13 Room Air 03/12/23 15:04 Room Air Pain Intensity Right Hip: Pain Intensity: 8 Transfer of Care Handoff Completed per policy Notes Mental Status: alert / awake / arousable and participated in evaluation Patient Amnestic to Procedure: Yes Nausea / Vomiting: adequately controlled Pain: adequately controlled Airway Patency, RR, SpO2: stable & adequate BP & HR: stable & adequate Hydration State: stable & adequate Neuraxial Anesthesia: was administered and sensory block is resolving Anesthetic Complications: no major complications apparent and Pt Satisfied with anesthetic care
[2023-03-13] MEDS ORDERED: ACETAMINOPHEN 325 MG TAB PO PRN (16:24)
[2023-03-13] MEDS: SODIUM CHLORIDE 0.9% 1000ML 1,000 ML IV SCH (16:36)
[2023-03-13] MEDS ORDERED: MoRPHine SULFATE 2 MG/ML CARP IV STA (17:24)
[2023-03-13] MEDS: ACETAMINOPHEN 325 MG TAB PO SCH (17:57)
[2023-03-13] MEDS: ASPIRIN 81 MG ECTAB PO SCH (20:34)
[2023-03-13] MEDS: ceFAZolin 1000MG 1,000 MG/7.5 ML SYR IV SCH (20:35)
[2023-03-13] MEDS: DULoxetine HCL 30 MG CAP PO SCH (20:35)
[2023-03-13] MEDS: DOCUSATE SODIUM/SENNA 50/8.6MG TAB PO SCH (20:35)
[2023-03-14] MEDS: ACETAMINOPHEN 325 MG TAB PO SCH ×5 (00:03→23:50)
[2023-03-14] MEDS: MoRPHine SULFATE 2 MG/ML CARP IV PRN ×5 (00:04→20:50)
[2023-03-14] MEDS: ceFAZolin 1000MG 1,000 MG/7.5 ML SYR IV SCH (05:04)
[2023-03-14] MEDS: SODIUM CHLORIDE 0.9% 1000ML 1,000 ML IV SCH (05:06)
[2023-03-14 06:02] LABS: Basophils # (auto) 0.05 K/uL (0-0.2); Basophils % (auto) 0.7 %; Eosinophils # (auto) 0.08 K/uL (0-0.50); Eosinophils % (auto) 1.1 %; Hemoglobin 11.4 g/dl (12.0-16.0); Immature Granulocytes # (auto) 0.03 K/uL (0.01-0.20); Immature Granulocytes % (auto) 0.4 %; Lymphocytes # (auto) 0.79 K/uL (1.2-3.4); Lymphocytes % (auto) 10.4 %; Mean Corpuscular Hemoglobin 31.5 pg (25.0-34.0); Mean Corpuscular Hgb Conc 34.5 g/dL (32.0-36.0); Mean Corpuscular Volume 91.2 fL (80.0-100.0); Mean Platelet Volume 10.4 fL (9.4-12.4); Monocytes # (auto) 0.79 K/uL (0.11-0.59); Monocytes % (auto) 10.4 %; Neutrophils # (auto) 5.85 K/uL (1.40-6.50); Platelet Count 176 K/uL (130-400); RDW Coefficient of Variation 12.7 % (11.5-14.5); RDW Standard Deviation 41.9 fL (36.4-46.3); Red Blood Count 3.62 M/uL (4.20-5.40); White Blood Count 7.59 K/ul (4.8-10.8)
[2023-03-14 06:20] LABS: BUN Creatinine Ratio 15.1 (10-20); Calcium 8.4 mg/dl (8.6-10.3); Creatinine Clr Calc Pharmacy 72.5 ml/min; Est GFR (African American) 105.2 ml/min; Est GFR (Non-African American) 90.8 ml/min; Potassium 3.6 mmol/L (3.5-5.1)
--- NOTE | 2023-03-14 07:37 | Hospitalist Progress Note ---
Date of Service March 14, 2023 Assessment & Plan (1) Closed right hip fracture: (2) Nerve pain: (3) Colostomy in place: (4) Acute blood loss anemia: Plan 57-year-old female with hx of Leiomyoma here due to mechanical fall resulting of R closed hip fracture Closed right hip fracture - Mechanical fall, no syncope/ presyncope - now s/p right long troches nail for a inner troches/substrate fracture (03/13). - Pain management with APA, Morphine, Tramadol, Oxycodone. Pain Moderate. - Per ortho DVT prophylaxis including thigh-high teds, SCDs, aspirin twice a day for 6 weeks. PT OT. She can fully weight-bear on the right leg. f/u with ortho 2 to 3 weeks out from surgery date. Any orthopedic questions can be direct me at [phone]. - Healthy bone noted during surgery. - Vitamin D level 28.6. Will supplement - Case management met with patient today 03/14, discussed referral to [facility] for rehab Acute Blood Loss Anemia - Decline in Hgb from 13.3 to 11.4 - H&H recheck scheduled for 1400 on 03/14 History of leiomyosarcoma -No recurrence - revision 2018 at [facility] With residual loop colostomy functioning normally, pending reversal at next follow-up. 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 Raghav Hayes is a 57 y/o female with past medical history of mild WILLI, Leiomyosarcoma removal on 2018, ostomy in place who fell on her right side after she "twist her feet" and lost her balance. Patient denied syncope/ presyncope, hitting her head or loss consciousness, chest pain, chest pressure, presyncope, syncope, dizziness that lead to her fall. Patient found to have a closed hip fracture. 7/24: Patient evaluated at bedside, presents in no apparent distress. Surgery was performed on 03/13, pain control with prn Tylenol and Morphine, both taken 3 times in last 24 hours. Patient interested in alternate options for pain control. Patient rates current pain as 5/10 at rest but notes that she is unable to move her right leg due to pain at time of interview. Patient later seen by physical therapy and was able to move from her bed to chair. Hemoglobin today 11.4, down from 13.3 yesterday. Review of Systems Review of Systems: All systems reviewed & are unremarkable except as noted in HPI & below Physical Exam Constitutional: WD/WN, vitals as above Respiratory: normal respiratory effort, lungs clear to auscultation Cardiovascular: RRR, no murmur, no edema Gastrointestinal (Abdomen): + ostomy Musculoskeletal: Patient unable to move RLE due to pain Skin: no rashes, warm and dry Neurologic: diminished sensation on dorsum of right foot, unchanged from baseline Results & Data Results & Data Vital Signs (Past 12 Hours) Vital Signs Temp Pulse Resp BP Pulse Ox O2 Del Method 03/14/23 04:18 36.8 C 86 16 125/73 95 Room Air 03/14/23 00:04 37 C 93 H 16 115/71 95 Room Air 03/13/23 20:25 37.1 C 96 H 16 119/70 95 Room Air Resident Activity Tracking Resident Involvement: Resident Care Provided Care Provided: Adult [facility] Medicine (1) Closed right hip fracture Encounter type: initial encounter Qualified Code(s): S72.001A - Fracture of unspecified part of neck of right femur, initial encounter for closed fracture
[2023-03-14] MEDS: ASPIRIN 81 MG ECTAB PO SCH ×2 (08:54→20:49)
[2023-03-14] MEDS: PREGABALIN 100 MG CAP PO SCH ×3 (08:59→20:49)
[2023-03-14] MEDS ORDERED: oxyCODONE HCL IR 5 MG TAB (IMMEDIATE RELEASE) PO PRN (09:09)
[2023-03-14] MEDS ORDERED: traMADol HCL 50 MG TABLET PO PRN ×2 (10:34→11:05)
--- NOTE | 2023-03-14 12:05 | Orthopedic Progress Note ---
Date of Service March 14, 2023 Assessment & Plan (1) Closed right hip fracture: Patient is now postoperative day 1 from a right long troches nail for a inner troches/substrate fracture. She is doing pretty well. Moderate amount of pain which is not unexpected. She is neurologically stable. Plan: 1 DVT prophylaxis including thigh-high teds, SCDs, aspirin twice a day for 6 weeks. 2. PT OT. She can fully weight-bear on the right leg. #3 pain control doing okay with current pain regimen. #4 disposition she is orthopedically okay for discharge anytime medically stable. She is want to go to a rehab or a penitentiary facility which I think is appropriate for this patient as she lives alone. I need to see her back 2 to 3 weeks out from surgery date. Any orthopedic questions can be direct me at [phone]. (2) Sciatic nerve palsy, right: Subjective . 57-year-old female postop day 1 from IM nailing of a right inner troches/subtalar fracture. She is doing okay. Having quite a bit of discomfort. No chest pain or shortness of breath. Not feeling dizzy or lightheaded. Review of Systems All systems reviewed & are unremarkable except as noted in HPI & below. Physical Exam . Physical examination reveals a pleasant middle-age female. As she is lying in bed and was working with the therapist when I visited her this morning. Examination of the right leg reveals the dressing clean dry and intact. Leg is well aligned. She is got no motor function below the knee. Thigh is soft and supple. She got brisk refill. Results & Data Results & Data Laboratory Results . Hemoglobin 11.4. Mackert 33.0. Electrolytes are stable. Diagnostic Findings . PG Care Time/CCT Total # of Minutes Spent Total Time Spent with Patient: Total time spent is greater than 50% in coordination of care (as documented) at patient's floor/unit and/or counseling patient: Coding Level of Care Code 20717 Post Operative Follow-Up Diagnoses Closed right hip fracture S72.001A Encounter type: initial encounter Sciatic nerve palsy, right G57.01 (1) Closed right hip fracture Encounter type: initial encounter Qualified Code(s): S72.001A - Fracture of unspecified part of neck of right femur, initial encounter for closed fracture
[2023-03-14 14:26] LABS: Hematocrit (blood only) 32.9 % (37.0-47.0); Hemoglobin 11.2 g/dl (12.0-16.0)
[2023-03-14] MEDS: oxyCODONE HCL IR 5 MG TAB (IMMEDIATE RELEASE) PO PRN ×2 (16:49→23:50)
[2023-03-14] MEDS: CHOLECALCIFEROL 1,000 UNITS 25 MCG TAB PO SCH (16:54)
[2023-03-14] MEDS: DOCUSATE SODIUM/SENNA 50/8.6MG TAB PO SCH (20:48)
[2023-03-14] MEDS: DULoxetine HCL 30 MG CAP PO SCH (20:49)
[2023-03-15] MEDS: ACETAMINOPHEN 325 MG TAB PO SCH ×4 (05:51→23:14)
[2023-03-15] MEDS: oxyCODONE HCL IR 5 MG TAB (IMMEDIATE RELEASE) PO PRN ×2 (05:51→23:14)
[2023-03-15] MEDS ORDERED: IBUPROFEN 600 MG TAB PO PRN (06:02)
--- NOTE | 2023-03-15 06:42 | Hospitalist Progress Note ---
Date of Service March 15, 2023 Assessment & Plan (1) Closed right hip fracture: (2) Nerve pain: (3) Colostomy in place: (4) Acute blood loss anemia: Plan 57-year-old female with hx of Leiomyoma here due to mechanical fall resulting of R closed hip fracture Closed right hip fracture - Mechanical fall, no syncope/ presyncope - s/p right long troches nail for a inner troches/substrate fracture (03/13). - Pain management with APA, Ibuprofen, Morphine, Oxycodone. - Per ortho DVT prophylaxis including thigh-high teds, SCDs, aspirin twice a day for 6 weeks. PT OT. She can fully weight-bear on the right leg. f/u with ortho 2 to 3 weeks out from surgery date. Any orthopedic questions can be directed to Dr. Mtz at [phone]. - Healthy bone noted during surgery. - Vitamin D level 28.6. Supplementation started. - Case management met with patient today 03/14, discussed referral to [facility] for rehab. Placement status pending. Expected dilutional Acute Blood Loss Anemia - Hemoglobin stable at 11.2 - h/h stable History of leiomyosarcoma -No recurrence - revision 2018 at [facility] With residual loop colostomy functioning normally, pending reversal at next follow-up. 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 Raghav Hayes is a 57 y/o female with past medical history of mild WILLI, Leiomyosarcoma removal on 2018, ostomy in place who fell on her right side after she "twist he r feet" and lost her balance. Patient denied syncope/ presyncope, hitting her head or loss consciousness, chest pain, chest pressure, presyncope, syncope, dizziness that lead to her fall. Patient found to have a closed hip fracture, underwent surgery on 03/13/23. Patient evaluated at bedside today, found seated next to bed in no apparent distress. Patient notes that pain has been well controlled with oxycodone, rates current pain as a 3/10. Patient reports ongoing difficulty with right leg mobility, despite clearance by ortho team and PT for full weight bearing. Pt also notes that she met with someone from [facility] regarding rehab, is hopeful about placement, especially considering that she lives alone and has a complex medical history. Review of Systems Review of Systems: All systems reviewed & are unremarkable except as noted in HPI & below Physical Exam Constitutional: WD/WN, vitals as above not in distress Respiratory: normal respiratory effort, lungs clear to auscultation Cardiovascular: RRR, no murmur, no edema Gastrointestinal (Abdomen): + ostomy Musculoskeletal: Limited mobility in right lower extremity, slight improvement from yesterday Skin: no rashes, warm and dry Results & Data Results & Data Vital Signs (Past 12 Hours) Vital Signs Temp Pulse Resp BP Pulse Ox O2 Del Method 03/14/23 19:50 36.7 C 98 H 16 102/64 98 Room Air Resident Activity Tracking Resident Involvement: Resident Care Provided Care Provided: Adult Hospital Medicine (1) Closed right hip fracture Encounter type: initial encounter Qualified Code(s): S72.001A - Fracture of unspecified part of neck of right femur, initial encounter for closed fracture
[2023-03-15 08:12] LABS: Basophils # (auto) 0.05 K/uL (0-0.2); Basophils % (auto) 0.8 %; Eosinophils # (auto) 0.13 K/uL (0-0.50); Hematocrit (blood only) 30.1 % (37.0-47.0); Hemoglobin 10.2 g/dl (12.0-16.0); Immature Granulocytes # (auto) 0.03 K/uL (0.01-0.20); Immature Granulocytes % (auto) 0.5 %; Lymphocytes # (auto) 0.92 K/uL (1.2-3.4); Lymphocytes % (auto) 14.5 %; Mean Corpuscular Hgb Conc 33.9 g/dL (32.0-36.0); Mean Corpuscular Volume 91.5 fL (80.0-100.0); Mean Platelet Volume 10.6 fL (9.4-12.4); Monocytes # (auto) 0.71 K/uL (0.11-0.59); Monocytes % (auto) 11.2 %; Neutrophils # (auto) 4.52 K/uL (1.40-6.50); Platelet Count 169 K/uL (130-400); RDW Coefficient of Variation 12.7 % (11.5-14.5); RDW Standard Deviation 41.9 fL (36.4-46.3); Red Blood Count 3.29 M/uL (4.20-5.40); White Blood Count 6.36 K/ul (4.8-10.8)
[2023-03-15] MEDS: CHOLECALCIFEROL 1,000 UNITS 25 MCG TAB PO SCH (08:35)
[2023-03-15] MEDS: ASPIRIN 81 MG ECTAB PO SCH ×2 (08:36→20:55)
[2023-03-15 08:42] LABS: BUN Creatinine Ratio 15.9 (10-20); Calcium 8.7 mg/dl (8.6-10.3); Creatinine Clr Calc Pharmacy 76.7 ml/min; Est GFR (African American) 111.2 ml/min; Potassium 3.5 mmol/L (3.5-5.1)
[2023-03-15] MEDS: PREGABALIN 100 MG CAP PO SCH ×3 (08:47→20:55)
--- NOTE | 2023-03-15 11:16 | Orthopedic Progress Note ---
Date of Service March 15, 2023 Assessment & Plan (1) Closed right hip fracture: 57-year-old female with a chronic sciatic nerve palsy from previous surgery in her pelvis for a leiomyosarcoma now postop day 2 from the IM nailing of a right inner troches fracture. She is doing quite well. Moderate amount of pain but nothing out of the ordinary. Plan: 1. DVT prophylaxis including thigh-high teds SCDs and aspirin twice a day for 6 weeks. 2. Pain control doing okay with current pain regimen.. 3. PT OT. She can fully weight-bear on this right leg. No particular restrictions. 4. Disposition this patient would benefit from a rehab stay due to her chronic nerve palsy and underlying medical situation and the fact that she lives by herself. marketing services vice president consulted final results pending Subjective . 57-year-old female now postop day 2 from a IM nailing of a right inner troches/subtalar fracture. Is still having significant amount of pain but nothing out of the ordinary. No chest pain or shortness of breath. Not feeling dizzy or lightheaded. Review of Systems All systems reviewed & are unremarkable except as noted in HPI & below. Physical Exam . Physical examination was a pleasant middle-age female. Sitting up in her bedside chair looks pretty comfortable. Does not look particularly painful. Examination the right hip and leg reveals the leg to be well aligned. Dressings are clean dry and intact. No significant drainage. She has no second motor function below the knee. Results & Data Results & Data Laboratory Results . Hemoglobin 10.2. Hematocrit 30.1. Electrolytes are stable. Diagnostic Findings . PG Care Time/CCT Total # of Minutes Spent Total Time Spent with Patient: Total time spent is greater than 50% in coordination of care (as documented) at patient's floor/unit and/or counseling patient: Coding Level of Care Code 16022 Post Operative Follow-Up Diagnoses Closed right hip fracture S72.001A Encounter type: initial encounter (1) Closed right hip fracture Encounter type: initial encounter Qualified Code(s): S72.001A - Fracture of unspecified part of neck of right femur, initial encounter for closed fracture
[2023-03-15] MEDS: DULoxetine HCL 30 MG CAP PO SCH (20:55)
[2023-03-15] MEDS: DOCUSATE SODIUM/SENNA 50/8.6MG TAB PO SCH (20:56)
[2023-03-16] MEDS: ACETAMINOPHEN 325 MG TAB PO SCH ×2 (05:34→11:22)
--- NOTE | 2023-03-16 06:50 | Hospitalist Progress Note ---
Date of Service March 16, 2023 Assessment & Plan (1) Closed right hip fracture: (2) Nerve pain: (3) Colostomy in place: (4) Acute blood loss anemia: Plan 57-year-old female with hx of Leiomyoma here due to mechanical fall resulting of R closed hip fracture Closed right hip fracture - Mechanical fall, no syncope/ presyncope - s/p right long troches nail for a inner troches/substrate fracture (03/13). - Pain management with APA, Ibuprofen, Morphine, Oxycodone. - Per ortho DVT prophylaxis including thigh-high teds, SCDs, aspirin twice a day for 6 weeks. PT OT. She can fully weight-bear on the right leg. f/u with ortho 2 to 3 weeks out from surgery date. Any orthopedic questions can be directed to Dr. Mtz at [phone]. - Healthy bone noted during surgery. - Vitamin D level 28.6. Supplementation started. - Case management met with patient today 03/14, discussed referral to [facility] for rehab. Placement status pending. Expected dilutional Acute Blood Loss Anemia - Hemoglobin stable at 11.2 - h/h stable History of leiomyosarcoma -No recurrence - revision 2018 at [facility] With residual loop colostomy functioning normally, pending reversal at next follow-up. 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 2018 - Continue duloxetine 30mg Colostomy in place -Functionally normally -Pending reversal at next follow -up Disp: Med/Surg DVT Prophylaxis: aspirin 81mg twice daily + SCDs + teds Diet: Regular Full code Admission and Anticipated Discharge Date Admission Date: March 12, 2023 Results & Data Results & Data Vital Signs (Past 12 Hours) Vital Signs Temp Pulse Resp BP Pulse Ox O2 Del Method 03/15/23 20:54 36.9 C 98 H 16 104/60 99 Room Air (1) Closed right hip fracture Encounter type: initial encounter Qualified Code(s): S72.001A - Fracture of unspecified part of neck of right femur, initial encounter for closed fracture
[2023-03-16] MEDS: PREGABALIN 100 MG CAP PO SCH (07:50)
[2023-03-16] MEDS: ASPIRIN 81 MG ECTAB PO SCH (07:51)
[2023-03-16] MEDS: CHOLECALCIFEROL 1,000 UNITS 25 MCG TAB PO SCH (07:51)
--- NOTE | 2023-03-16 10:41 | Discharge Summary ---
Date of Service March 16, 2023 Admission HPI Per Admitting Provider Abigail is a 57-year-old female with a past medical history of mild WILLI, leiomyosarcoma 2018 followed with [facility] with last imaging 08/2022 stable, ostomy who fell on her right side after she lost her balance walking on the sidewalk. She did not hit her head or lose consciousness. She is not on blood thinners. Abigail reports she has a drop foot with some mobility issues on her R foot. [place] 'and get tangled up and just fell sideways' and fell 'smack on the R leg/hip which took the whole blow and instantly had excruciating pain.' No head injury, no LoC. No chest pain, chest pressure, presyncope, syncope, dizziness that lead to her fall. Endorses a history of leimyosarcoma s/p multiple surgeries with major surgery in 2018. While removing the mass nerve to her R leg was partially cut/damaged so below the R knee has no strength and is weak in the R proximal thigh muscles at baseline. No sensation in most of the R foot (does have some phantom pain on lyrica/symbalta) and gets some phantom paresthesias in R calf. Also has an ostomy placement following her tumor resection in 2019. Tumor was close enough to the colon that they needed a partial colon resection to get good margins. Loop colostomy, can have it reversed at some point but hadn't done this yet. Was scheduled to go to [place] for re-evaluation of this. no issues with the ostomy. Normal output. Rare rectal pouch output 'rare peanut'. Last latte 11pm. No solid food today. R Hamstring reattached by Dr. Slaughter January 2013, with R pelvic reattachement. Medical History: Reviewed Medications: Reviewed Surgical History: Reviewed Family history: Reviewed. Mother heavy tobacco and ETOH some 'heart issues' in 60s. Stroke, earliest was ~60s. Passed in 70s, had multiple strokes. Allergies: Reviewed Social History: NO tobacco product use, some childhood secondary smoke exposure. EtoH social use, although notes had been ~3-4 times per week 1-2 per sitting. Code Status: Full Code Admission Exam Per Admitting Provider General: A&Ox3. NAD. Cooperative. HEENT: Atraumatic, normocephalic. Vision/hearing intact Pulm: CTAB A&P. -wheezes, -rales, -rhonchi. Symmetrical chest rise. No increased work of breathing. No respiratory distress. Cardiac: RRR, -mrg. Radial pulses intact and symmetrical. Abdominal: +ostomy. Nontender, nondistended, soft. BS present. Ext: R hip shortened and externally rotated. Sensation to soft touch is diminished but intact in right calf and ankle, minimally present at right dorsal foot, and absent in the plantar foot other than the arch. Right lower extremity is atrophic. Cap refill approximately 2 seconds. Left lower extremity is with normal strength and sensation to soft touch, cap refill less than 2 seconds Principal Diagnosis Right hip fracture Discharge Exam Constitutional WD/WN, vitals as above not in distress Respiratory normal respiratory effort, lungs clear to auscultation Cardiovascular RRR, no murmur, no edema Musculoskeletal Strength 4/5 on right hip flexion, improved from yesterday, Strength 5/5 in LLE, LUE, and RUE Knee: no tenderness to palpation, patellar grind test negative, varus/valgus stress tests negative, anterior/posterior drawer tests negative Skin no rashes, warm and dry Psychiatric AOx4. Mood affect congruence. Discharge Data Allergies Allergy/AdvReac Type Severity Reaction Status Date / Time No Known Drug Allergies Allergy Unknown Verified 10/06/22 09:52 Consultations 03/12/23 13:45 ED Decision to Admit Stat 03/12/23 15:52 Consult Orthopedic Surgery Routine Procedures Performed Operation Date: 03/13/23 10:00 Actual Procedures p Intramedullary Bruce Femur(Right) - Evin Mtz MD Ordered Studies 03/13/23 10:00 FL femur RT 2V Routine Hospital Course (1) Closed right hip fracture: Closed right hip fracture - Patient presented secondary to mechanical fall, no syncope/ presyncope - Ortho consulted, patient underwent surgery on 03/13 with placement of right long troches nail for a inner troches/substrate fracture - Vitamin D level was 28.6. Supplementation started. Bone healthy per OR note. - Patient discharged to [facility] for inpatient rehab with the following medications: - Acetaminophen, Ibuprofen, Oxycodone for pain management - Aspirin for DVT prophylaxis - Vitamin D supplement Expected dilutional Acute Blood Loss Anemia - Hemoglobin serially checked throughout hospitalization: 15.1, 13.3, 11.4, 11.2, 10.2 Right knee discomforted - Reported later in hospital stay. - No concerns per ortho - Xray done - negative. History of leiomyosarcoma -revision in 2018 at [facility] residual loop colostomy functioning normally, pending reversal at next follow- up. 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 Activity: Per Instructions section Activity Comment: May fully weightbear as tolerated. Weightbearing: Full weightbearing Non-emergency contact: Primary Care Provider Call non-emergency contact if: your wound has increased redness, your wound has increased drainage and your wound pain has increased Follow-up/Referrals: Princess Conway [Primary Care Provider] - Evin Mtz MD [Physician] - (Orthopedic follow-up 2-3 weeks from surgery date.) Diet: Regular Addtl Attending Provider Instructions: You were admitted due to right hip fracture and underwent surgical fixation. You are being discharged to an inpatient rehabilitation facility for ongoing therapy. - Continue PT/OT as directed by inpatient rehab facility - cleared by ortho team for full weightbearing as tolerated - Pain control as needed Pending Studies at Discharge: Yes Studies:: x-ray of right knee done, not read Stand-Alone Forms: My [facility] [address] Skilled Items Patient informed of condition?: Yes DNR: No Discharge Level of Care: Acute rehab Communicable Disease: No Discharge Prognosis: Improving Lines: None Urinary Catheter: No Medications and DC Order Prescriptions: New aspirin 81 mg Tablet,Delayed Release (Dr/Ec) 81 mg PO BID 42 Days Qty: 84 0RF acetaminophen 325 mg Tablet 650 mg PO Q6H Qty: 30 0RF ibuprofen 600 mg Tablet 600 mg PO Q8H PRN (Reason: pain) 30 Days Qty: 30 0RF oxycodone 5 mg Tablet 5 mg PO Q6H PRN (Reason: pain) Qty: 7 0RF cholecalciferol (vitamin D3) 25 mcg (1,000 unit) Capsule 1,000 unit PO QAM Qty: 30 0RF Continued duloxetine 30 mg capsule,delayed release(DR/EC) 30 mg PO HS pregabalin 100 mg capsule 100 mg PO TID Discharge Orders: Discharge Order (Routine); Ordered 03/16/23 Ordered By: Dontae Estevez/Other Patient Handouts: Hip Precautions Admission Data Admit Date/Time: 03/12/23 14:20 Attending Provider: Nadia Mujica Admit Provider: Russ Lubin Primary Care Provider: Princess Conway Other Providers: Russ Lubin ; Evin Mtz ; [facility] ; Walt Rivers [facility] Other Interventions: Discharge Summary Assessment (RN) Last Done: 03/16/23 13:43 Supervising Physician Co-Signing Physician Notes Resident Physician Supervision Note: I independently interviewed and examined the patient and verified the mayes history and physical, reviewed labs and image studies and agree with resident findings and care plan. Resident Activity Tracking Resident Involvement: Resident Care Provided Care Provided: Adult Hospital Medicine
--- NOTE | 2023-03-16 10:43 | XRay Report ---
XR knee RT 1 or 2V routine CLINICAL HISTORY: right knee pain COMPARISON STUDY: Right knee 07/06/2021. Right hip 03/12/2023. FINDINGS: Partially visualized right femoral intramedullary dinh with interlocking distal screws from the recent internal fixation. Skin hossein are seen within the lateral right distal thigh. No acute f racture or dislocation within the right knee. No synovial knee effusion. No soft tissue swelling. IMPRESSION: 1. No fracture or dislocation within the right knee. 2. Partially visualized postoperative changes within the right femur. ACT 112: Negative or not required by law. Electronically signed by: Félix Kirby M.D. 03/16/2023 10:42 AM
--- NOTE | 2023-03-16 12:41 | Orthopedic Progress Note ---
Date of Service March 16, 2023 Assessment & Plan (1) Closed right hip fracture: 57-year-old female postop day 3 from I have noted right inner troches/subtotal fracture. She is slowly improving up. Normal to have quite a bit of pain with this. She is having some knee pain likely referred from the hip itself. Her exam and her knee is completely benign and her radiographs and normal. Plan: 1. DVT prophylaxis eluding thigh-high teds, SCDs, aspirin twice a day for 6 weeks. 2. PT OT. She can fully weight-bear as tolerated.. 3. Pain control appears to be doing reasonably well with current pain regimen 4. Medical management as per the medicine service 5. Disposition plan to discharge to [facility] for a brief rehab stay. I need to see her back 2 to 3 weeks out from surgery date. (2) Knee pain: Subjective . 57-year-old female now postop day 3 from IM nailing of a right inner troches/subtalar fracture. Pain is getting a little bit better. Reports a little bit of knee pain. An x-ray was obtained of her knee. Still having difficulty putting all her weight on her leg. Review of Systems All systems reviewed & are unremarkable except as noted in HPI & below. Physical Exam . Physical examination of the right leg reveals the dressing to clean dry and intact. Leg is well aligned. Dressing is clean dry and intact. Minimal swelling. Examination of the knee reveals no effusion. No focal tenderness. She can do a straight leg raise. She does have some chronic quad weakness but her quad works. Results & Data Results & Data Laboratory Results . Diagnostic Findings . PG Care Time/CCT Total # of Minutes Spent Total Time Spent with Patient: Total time spent is greater than 50% in coordination of care (as documented) at patient's floor/unit and/or counseling patient: Coding Level of Care Code 06761 Post Operative Follow-Up Diagnoses Closed right hip fracture S72.001A Encounter type: initial encounter Knee pain M25.569 (1) Closed right hip fracture Encounter type: initial encounter Qualified Code(s): S72.001A - Fracture of unspecified part of neck of right femur, initial encounter for closed fracture
== END 2023-03-16 14:06 | DRG 481 ==
LOC: ED 12:17 → 3W 14:20 → SUATTDRO 14:20 → 3W 15:14